=== PATIENT | male | born 2000 | race African-American/Black ===

== ENCOUNTER 2025-02-22 14:00 | Emergency (ER) | payer SELFPAY | END 2025-02-22 16:30 | disposition home or self-care (01) | LOC: CSHERS 14:00 | DX: J02.9 Acute pharyngitis, unspecified (principal); B97.89 Other viral agents as the cause of diseases classified elsewhere; F17.290 Nicotine dependence, other tobacco product, uncomplicated | CPT/HCPCS: 87081; 87430; 99283 ==